=== PATIENT | male | born 1955 | race African-American/Black ===

== ENCOUNTER 2018-01-22 14:31 | Inpatient (IN) | payer MEDICAID, OTHER ==
[~2018-01-22] VITALS: Ht 180.3 cm; Wt 83.5 kg
[2018-01-22] MEDS ORDERED: SODIUM CHLORIDE FLUSH 10ML SYR IVF ONE (15:00)
[2018-01-22 15:22] LABS: BASOPHILS # (AUTO) 0.02 x10^3/uL (0-0.1); BASOPHILS % (AUTO) 0 % (0-1); EOSINOPHILS # (AUTO) 0.31 x10^3/uL (0-0.4); EOSINOPHILS % (AUTO) 3 % (1-7); LYMPHOCYTES # (AUTO) 2.15 x10^3/uL (1-3.4); LYMPHOCYTES % (AUTO) 18 % (22-44); MD NO; MEAN CORPUSCULAR HEMOGLOBIN 28.6 pg (27.5-34.5); MEAN CORPUSCULAR HGB CONC 32.6 g/dL (33.2-36.2); MEAN CORPUSCULAR VOLUME 87.8 fL (81-97); MEAN PLATELET VOLUME 10.6 fL (7.4-10.4); MONOCYTES % (AUTO) 7 % (2-9); NEUTROPHILS # (AUTO) 8.41 x10^3/uL (1.8-6.8); NEUTROPHILS % (AUTO) 72 % (42-75); PLATELET COUNT 177 x10^3/uL (130-400); RED BLOOD COUNT 4.77 x10^6/uL (4.38-5.82); RED CELL DISTRIBUTION WIDTH 16.9 % (9.4-14.8)
[2018-01-22 15:35] LABS: ALANINE AMINOTRANSFERASE 15 U/L (12-78); ALBUMIN 3.1 g/dL (3.4-5.0); ANION GAP 7 mmol/L (5-15); CALCIUM 8.7 mg/dL (8.5-10.1); CHLORIDE 108 mmol/L (98-107); CREATININE 2.13 mg/dL (0.7-1.3)
[2018-01-22 15:40] LABS: ALKALINE PHOSPHATASE 143 U/L (45-117); BILIRUBIN,TOTAL 0.3 mg/dL (0.2-1.0); TROPONIN I < 0.015 ng/mL (0.000-0.045)
[2018-01-22] MEDS ORDERED: CLON0.1T PO (16:57)
[2018-01-22] MEDS ORDERED: HYDR-3341 PO (16:57)
[2018-01-22] MEDS ORDERED: POLYETHYLENE GLYCOL 17 GM PACKET PO PRN (17:30)
[2018-01-22] MEDS ORDERED: ONDANSETRON 2MG/ML, 2ML IVPush PRN (17:30)
[2018-01-22] MEDS: HEPARIN 5,000 UNITS/ML, 1ML SQ SCH (17:30)
[2018-01-22] MEDS ORDERED: ONDANSETRON ODT 4 MG PO PRN (17:30)
[2018-01-22] MEDS ORDERED: LABETALOL 5MG/ML, 20ML IVPush PRN ×2 (17:30→19:00)
[2018-01-22 17:38] LABS: FREE T4 (FREE THYROXINE) 1.22 ng/dL (0.76-1.46)
[2018-01-22] MEDS: FUROSEMIDE 40 MG/4 ML IV SCH (18:00)
[2018-01-22] MEDS: CARVEDILOL 25 MG TABLET PO SCH (18:00)
[2018-01-22] MEDS ORDERED: PANTOPRAZOLE 40 MG IV IVPush SCH (18:00)
[2018-01-22 18:12] LABS: HEMOGLOBIN A1C 5.3 % (4.2-6.3)
[2018-01-22] MEDS ORDERED: ALBUTEROL SULFATE 2.5 MG/3 ML ONE (18:18)
[2018-01-22] MEDS ORDERED: ALBUTEROL SULFATE 2.5 MG/3 ML NPPB PRN (18:30)
[2018-01-22 18:47] LABS: CHOL/HDL RATIO 2.7; FOLATE LEVEL 13.6 ng/mL (3.1-17.5); LDL/HDL RATIO 1.2 (0.5-3.0)
[2018-01-22 18:54] VITALS: BP 189/92
[2018-01-22] MEDS: ALBUTEROL SULFATE 2.5 MG/3 ML NPPB SCH (20:00)
[2018-01-22] MEDS: THIAMINE 100MG TABLET PO SCH (20:28)
[2018-01-22] MEDS: FOLIC ACID 1 MG TABLET PO SCH (20:28)
[2018-01-22] MEDS: AMLODIPINE 5 MG TABLET PO SCH ×2 (20:29→21:00)
[2018-01-22] MEDS: OXYcodone IR 5MG TABLET PO PRN (20:29)
[2018-01-22 20:30] VITALS: BP 172/91
[2018-01-22] MEDS ORDERED: FUROSEMIDE 40 MG/4 ML IV ONE (20:30)
[2018-01-22] MEDS ORDERED: CARVEDILOL 25 MG TABLET PO SCH (20:30)
[2018-01-22] MEDS ORDERED: CARVEDILOL 25 MG TABLET PO ONE (20:30)
[2018-01-22 21:15] VITALS: BP 174/89
[2018-01-22 21:21] LABS: TROPONIN I < 0.015 ng/mL (0.000-0.045)
[2018-01-22 21:47] VITALS: BP 175/96
[2018-01-22] MEDS ORDERED: AMLO5TAB7 PO (21:57)
[2018-01-22 22:13] VITALS: BP 158/86
[2018-01-22 23:37] LABS: AMPHETAMINE SCREEN, URINE Negative (Negative); BARBITURATE SCREEN, URINE Negative (Negative); BENZODIAZEPINE SCREEN, URINE Negative (Negative); CANNABINOID SCREEN, URINE Positive (Negative); COCAINE SCREEN, URINE Negative (Negative); METHADONE SCREEN, URINE Negative (Negative); OPIATE SCREEN, URINE Negative (Negative); SODIUM,URINE RANDOM 114 mmol/L
[2018-01-22 23:52] LABS: MICROSCOPIC INDICATED
[2018-01-22 23:54] LABS: CULTURE INDICATED? NO
[2018-01-23 00:07] VITALS: BP 166/88
[2018-01-23] MEDS: HEPARIN 5,000 UNITS/ML, 1ML SQ SCH ×2 (01:05→10:22)
[2018-01-23 01:08] VITALS: BP 114/83
[2018-01-23 05:30] LABS: ALBUMIN 2.7 g/dL (3.4-5.0); ANION GAP 6 mmol/L (5-15); CALCIUM 8.6 mg/dL (8.5-10.1); CHLORIDE 106 mmol/L (98-107)
[2018-01-23 05:32] LABS: BASOPHILS # (AUTO) 0.07 x10^3/uL (0-0.1); BASOPHILS % (AUTO) 1 % (0-1); EOSINOPHILS # (AUTO) 0.11 x10^3/uL (0-0.4); EOSINOPHILS % (AUTO) 1 % (1-7); LYMPHOCYTES # (AUTO) 2.63 x10^3/uL (1-3.4); LYMPHOCYTES % (AUTO) 19 % (22-44); MD NO; MEAN CORPUSCULAR HEMOGLOBIN 29.2 pg (27.5-34.5); MEAN CORPUSCULAR VOLUME 88.5 fL (81-97); MEAN PLATELET VOLUME 11.4 fL (7.4-10.4); MONOCYTES # (AUTO) 1.29 x10^3/uL (0.2-0.8); MONOCYTES % (AUTO) 9 % (2-9); NEUTROPHILS # (AUTO) 10.12 x10^3/uL (1.8-6.8); NEUTROPHILS % (AUTO) 71 % (42-75); PLATELET COUNT 167 x10^3/uL (130-400); RED BLOOD COUNT 4.41 x10^6/uL (4.38-5.82)
[2018-01-23 05:36] LABS: ALANINE AMINOTRANSFERASE 12 U/L (12-78); ALKALINE PHOSPHATASE 121 U/L (45-117); BILIRUBIN,TOTAL 0.5 mg/dL (0.2-1.0); CREATININE 2.29 mg/dL (0.7-1.3); TOTAL PROTEIN 6.3 g/dL (6.4-8.2); TROPONIN I < 0.015 ng/mL (0.000-0.045)
[2018-01-23] MEDS: ASPIRIN 81 MG TABLET EC PO SCH (05:44)
[2018-01-23] MEDS: CARVEDILOL 25 MG TABLET PO SCH ×2 (05:44→16:50)
[2018-01-23 06:29] VITALS: BP 147/80
[2018-01-23] MEDS: ALBUTEROL SULFATE 2.5 MG/3 ML NPPB SCH ×4 (07:00→18:57)
[2018-01-23] MEDS: PANTOPRAZOLE 40 MG IV IVPush SCH ×2 (07:38→17:44)
[2018-01-23] MEDS: FUROSEMIDE 40 MG/4 ML IV SCH (07:38)
[2018-01-23] MEDS ORDERED: MAGNESIUM SULFATE PMX 2GM/50ML 50 ML IV ONE (08:00)
[2018-01-23] MEDS: DOXYCYCLINE 100MG TABLET PO SCH ×2 (08:55→21:38)
[2018-01-23] MEDS: SENNA/DOCUSATE TABLET PO SCH (08:55)
[2018-01-23] MEDS: FOLIC ACID 1 MG TABLET PO SCH (08:55)
[2018-01-23] MEDS: THIAMINE 100MG TABLET PO SCH (08:55)
[2018-01-23] MEDS: AMLODIPINE 5 MG TABLET PO SCH ×2 (08:55→21:38)
[2018-01-23] MEDS: OXYcodone IR 5MG TABLET PO PRN (08:56)
[2018-01-23] MEDS: AMPICILLIN/SULBACTAM 3 GM in SODIUM CHLORIDE 0.9% 100 ML IV SCH ×3 (10:23→21:40)
[2018-01-23] MEDS ORDERED: NITROGLYCERIN 0.4 MG BOTTLE (25 TABS) SL PRN (10:30)
[2018-01-23] MEDS ORDERED: MORPHINE SULFATE 4 MG/ML, 1ML IVPush PRN (10:30)
[2018-01-23 12:13] VITALS: BP 160/85
[2018-01-23] MEDS ORDERED: MAALOX/HYOSCYAMINE/LIDOCAINE 45 ML BTL PO ONE (13:30)
[2018-01-23] MEDS ORDERED: HEPARIN 25,000 UNITS/500ML PMX 500 ML IV PRN ×2 (16:30)
[2018-01-23] MEDS ORDERED: HEPARIN 5,000 UNITS/ML, 1ML IV ONE (16:30)
[2018-01-23] MEDS: FUROSEMIDE 20 MG/2 ML IV SCH (16:50)
[2018-01-23 20:00] VITALS: BP 150/88
[2018-01-24] MEDS: HEPARIN 5,000 UNITS/ML, 1ML IV PRN ×2 (00:52→08:22)
[2018-01-24 01:57] VITALS: BP 140/77
[2018-01-24] MEDS: AMPICILLIN/SULBACTAM 3 GM in SODIUM CHLORIDE 0.9% 100 ML IV SCH ×4 (04:15→19:32)
[2018-01-24] MEDS: PANTOPRAZOLE 40 MG IV IVPush SCH ×2 (05:13→07:30)
[2018-01-24] MEDS: ASPIRIN 81 MG TABLET EC PO SCH (05:14)
[2018-01-24 07:05] VITALS: BP 145/75
[2018-01-24 07:44] LABS: MEAN CORPUSCULAR HEMOGLOBIN 28.9 pg (27.5-34.5); MEAN CORPUSCULAR HGB CONC 32.8 g/dL (33.2-36.2); MEAN CORPUSCULAR VOLUME 88.1 fL (81-97); MEAN PLATELET VOLUME 11.3 fL (7.4-10.4); PLATELET COUNT 160 x10^3/uL (130-400); RED BLOOD COUNT 4.55 x10^6/uL (4.38-5.82); RED CELL DISTRIBUTION WIDTH 16.5 % (9.4-14.8)
[2018-01-24 07:46] LABS: ALANINE AMINOTRANSFERASE 11 U/L (12-78); ALBUMIN 2.5 g/dL (3.4-5.0); ANION GAP 4 mmol/L (5-15); CALCIUM 8.2 mg/dL (8.5-10.1); CHLORIDE 104 mmol/L (98-107); CREATININE 2.59 mg/dL (0.7-1.3)
[2018-01-24 07:48] LABS: ALKALINE PHOSPHATASE 118 U/L (45-117); BILIRUBIN,TOTAL 0.3 mg/dL (0.2-1.0); TOTAL PROTEIN 6.4 g/dL (6.4-8.2)
[2018-01-24] MEDS: ALBUTEROL SULFATE 2.5 MG/3 ML NPPB SCH ×4 (08:00→18:48)
[2018-01-24] MEDS: FUROSEMIDE 20 MG/2 ML IV SCH (08:21)
[2018-01-24] MEDS: THIAMINE 100MG TABLET PO SCH (08:22)
[2018-01-24] MEDS: FOLIC ACID 1 MG TABLET PO SCH (08:22)
[2018-01-24] MEDS: SENNA/DOCUSATE TABLET PO SCH (08:22)
[2018-01-24] MEDS: AMLODIPINE 5 MG TABLET PO SCH ×2 (08:22→20:24)
[2018-01-24] MEDS: DOXYCYCLINE 100MG TABLET PO SCH ×2 (08:22→20:25)
[2018-01-24 08:27] LABS: BASOPHILS # (AUTO) 0.02 x10^3/uL (0-0.1); BASOPHILS % (AUTO) 0 % (0-1); EOSINOPHILS # (AUTO) 0.18 x10^3/uL (0-0.4); EOSINOPHILS % (AUTO) 2 % (1-7); LYMPHOCYTES # (AUTO) 1.91 x10^3/uL (1-3.4); LYMPHOCYTES % (AUTO) 20 % (22-44); MD SCAN; MONOCYTES # (AUTO) 0.98 x10^3/uL (0.2-0.8); MONOCYTES % (AUTO) 11 % (2-9); NEUTROPHILS # (AUTO) 6.28 x10^3/uL (1.8-6.8); NEUTROPHILS % (AUTO) 67 % (42-75)
[2018-01-24] MEDS: CARVEDILOL 25 MG TABLET PO SCH (08:28)
[2018-01-24 13:23] VITALS: BP 151/69
[2018-01-24 16:19] VITALS: BP 142/60
[2018-01-24] MEDS: PANTOPROZOLE 40MG TABLET PO SCH (16:23)
[2018-01-24] MEDS: CARVEDILOL 12.5 MG TABLET PO SCH (16:23)
[2018-01-24 19:43] VITALS: BP 120/60
[2018-01-24] MEDS: HEPARIN 5,000 UNITS/ML, 1ML SQ SCH (21:59)
[2018-01-24 22:20] LABS: BASOPHILS # (AUTO) 0.04 x10^3/uL (0-0.1); BASOPHILS % (AUTO) 0 % (0-1); EOSINOPHILS % (AUTO) 2 % (1-7); LYMPHOCYTES # (AUTO) 2.41 x10^3/uL (1-3.4); LYMPHOCYTES % (AUTO) 28 % (22-44); MD NO; MEAN CORPUSCULAR HGB CONC 32.8 g/dL (33.2-36.2); MEAN CORPUSCULAR VOLUME 88.7 fL (81-97); MEAN PLATELET VOLUME 10.5 fL (7.4-10.4); MONOCYTES # (AUTO) 1.14 x10^3/uL (0.2-0.8); MONOCYTES % (AUTO) 13 % (2-9); NEUTROPHILS # (AUTO) 4.96 x10^3/uL (1.8-6.8); NEUTROPHILS % (AUTO) 57 % (42-75); PLATELET COUNT 161 x10^3/uL (130-400); RED BLOOD COUNT 4.25 x10^6/uL (4.38-5.82); RED CELL DISTRIBUTION WIDTH 16.2 % (9.4-14.8)
[2018-01-24 22:28] LABS: ALANINE AMINOTRANSFERASE 12 U/L (12-78); ALBUMIN 2.3 g/dL (3.4-5.0); ANION GAP 6 mmol/L (5-15); CALCIUM 8.4 mg/dL (8.5-10.1); CHLORIDE 102 mmol/L (98-107); CREATININE 2.86 mg/dL (0.7-1.3)
[2018-01-24 22:30] LABS: ALKALINE PHOSPHATASE 105 U/L (45-117); BILIRUBIN,TOTAL 0.2 mg/dL (0.2-1.0)
[2018-01-25] MEDS: AMPICILLIN/SULBACTAM 3 GM in SODIUM CHLORIDE 0.9% 100 ML IV SCH ×4 (01:55→20:23)
[2018-01-25 02:00] VITALS: BP 128/65
[2018-01-25] MEDS: HEPARIN 5,000 UNITS/ML, 1ML SQ SCH ×3 (05:54→22:08)
[2018-01-25] MEDS: ASPIRIN 81 MG TABLET EC PO SCH (05:54)
[2018-01-25] MEDS: PANTOPROZOLE 40MG TABLET PO SCH ×2 (05:54→16:29)
[2018-01-25] MEDS: ALBUTEROL SULFATE 2.5 MG/3 ML NPPB SCH ×5 (06:15→22:46)
[2018-01-25] MEDS ORDERED: PHARMACY MAY ADJ FOR RENAL FX MC PRN (06:30)
[2018-01-25 07:32] VITALS: BP 132/75
[2018-01-25] MEDS: CARVEDILOL 12.5 MG TABLET PO SCH ×2 (08:58→18:02)
[2018-01-25] MEDS: AMLODIPINE 5 MG TABLET PO SCH ×2 (08:58→20:22)
[2018-01-25] MEDS: FOLIC ACID 1 MG TABLET PO SCH (08:59)
[2018-01-25] MEDS: DOXYCYCLINE 100MG TABLET PO SCH ×2 (08:59→20:22)
[2018-01-25] MEDS: THIAMINE 100MG TABLET PO SCH (08:59)
[2018-01-25] MEDS: SENNA/DOCUSATE TABLET PO SCH (08:59)
[2018-01-25 14:58] VITALS: BP 150/73
[2018-01-25] MEDS: OXYcodone IR 5MG TABLET PO PRN (16:29)
[2018-01-25 18:02] VITALS: BP 163/82
[2018-01-25 20:00] VITALS: BP 144/73
[2018-01-25 23:32] VITALS: BP 151/67
[2018-01-26 02:00] VITALS: BP 154/85
[2018-01-26] MEDS: AMPICILLIN/SULBACTAM 3 GM in SODIUM CHLORIDE 0.9% 100 ML IV SCH ×3 (02:52→17:00)
[2018-01-26 05:02] LABS: BASOPHILS # (AUTO) 0.03 x10^3/uL (0-0.1); BASOPHILS % (AUTO) 1 % (0-1); EOSINOPHILS % (AUTO) 3 % (1-7); LYMPHOCYTES # (AUTO) 2.08 x10^3/uL (1-3.4); LYMPHOCYTES % (AUTO) 27 % (22-44); MD NO; MEAN CORPUSCULAR HEMOGLOBIN 29.1 pg (27.5-34.5); MEAN CORPUSCULAR HGB CONC 32.9 g/dL (33.2-36.2); MEAN CORPUSCULAR VOLUME 88.4 fL (81-97); MEAN PLATELET VOLUME 10.7 fL (7.4-10.4); MONOCYTES # (AUTO) 0.88 x10^3/uL (0.2-0.8); MONOCYTES % (AUTO) 11 % (2-9); NEUTROPHILS # (AUTO) 4.54 x10^3/uL (1.8-6.8); NEUTROPHILS % (AUTO) 59 % (42-75); PLATELET COUNT 168 x10^3/uL (130-400); RED BLOOD COUNT 4.17 x10^6/uL (4.38-5.82); RED CELL DISTRIBUTION WIDTH 16.4 % (9.4-14.8)
[2018-01-26 05:04] LABS: ALBUMIN 2.4 g/dL (3.4-5.0); CHLORIDE 106 mmol/L (98-107)
[2018-01-26 05:12] LABS: ANION GAP 6 mmol/L (5-15); CREATININE 2.98 mg/dL (0.7-1.3)
[2018-01-26] MEDS: ASPIRIN 81 MG TABLET EC PO SCH (06:28)
[2018-01-26] MEDS: PANTOPROZOLE 40MG TABLET PO SCH ×2 (06:28→17:00)
[2018-01-26] MEDS: HEPARIN 5,000 UNITS/ML, 1ML SQ SCH ×3 (06:29→20:54)
[2018-01-26 08:30] VITALS: BP 148/90
[2018-01-26] MEDS: FOLIC ACID 1 MG TABLET PO SCH (08:39)
[2018-01-26] MEDS: SENNA/DOCUSATE TABLET PO SCH (08:40)
[2018-01-26] MEDS: AMLODIPINE 5 MG TABLET PO SCH ×2 (08:40→20:54)
[2018-01-26] MEDS: DOXYCYCLINE 100MG TABLET PO SCH ×2 (08:40→20:54)
[2018-01-26] MEDS: CARVEDILOL 12.5 MG TABLET PO SCH ×2 (08:40→16:59)
[2018-01-26] MEDS: THIAMINE 100MG TABLET PO SCH (08:40)
[2018-01-26] MEDS: OXYcodone IR 5MG TABLET PO PRN ×2 (08:45→20:54)
[2018-01-26] MEDS: ALBUTEROL SULFATE 2.5 MG/3 ML NPPB SCH ×3 (11:28→20:00)
[2018-01-26] MEDS ORDERED: ERGOCALCIFEROL 50,000 UNIT CAPSULE PO SCH (12:00)
[2018-01-26 14:00] VITALS: BP 144/86
[2018-01-26 20:13] VITALS: BP 146/88
[2018-01-27] MEDS: AMPICILLIN/SULBACTAM 3 GM in SODIUM CHLORIDE 0.9% 100 ML IV SCH ×3 (00:08→16:35)
[2018-01-27 00:52] VITALS: BP 151/76
[2018-01-27 04:45] LABS: BASOPHILS # (AUTO) 0.04 x10^3/uL (0-0.1); BASOPHILS % (AUTO) 1 % (0-1); EOSINOPHILS # (AUTO) 0.23 x10^3/uL (0-0.4); EOSINOPHILS % (AUTO) 3 % (1-7); LYMPHOCYTES % (AUTO) 30 % (22-44); MD NO; MEAN CORPUSCULAR HEMOGLOBIN 28.9 pg (27.5-34.5); MEAN CORPUSCULAR HGB CONC 32.5 g/dL (33.2-36.2); MEAN CORPUSCULAR VOLUME 88.8 fL (81-97); MEAN PLATELET VOLUME 11.1 fL (7.4-10.4); MONOCYTES # (AUTO) 0.76 x10^3/uL (0.2-0.8); MONOCYTES % (AUTO) 10 % (2-9); NEUTROPHILS # (AUTO) 4.05 x10^3/uL (1.8-6.8); NEUTROPHILS % (AUTO) 56 % (42-75); PLATELET COUNT 185 x10^3/uL (130-400); RED BLOOD COUNT 4.13 x10^6/uL (4.38-5.82); RED CELL DISTRIBUTION WIDTH 16.1 % (9.4-14.8)
[2018-01-27 04:56] LABS: ALBUMIN 2.3 g/dL (3.4-5.0); ANION GAP 6 mmol/L (5-15); CALCIUM 8.6 mg/dL (8.5-10.1); CHLORIDE 108 mmol/L (98-107)
[2018-01-27] MEDS: CARVEDILOL 12.5 MG TABLET PO SCH ×2 (05:15→16:35)
[2018-01-27] MEDS: PANTOPROZOLE 40MG TABLET PO SCH ×2 (05:15→16:35)
[2018-01-27] MEDS: ASPIRIN 81 MG TABLET EC PO SCH (05:15)
[2018-01-27] MEDS: HEPARIN 5,000 UNITS/ML, 1ML SQ SCH ×3 (05:16→21:51)
[2018-01-27] MEDS: ALBUTEROL SULFATE 2.5 MG/3 ML NPPB SCH (07:20)
[2018-01-27] MEDS ORDERED: MAGNESIUM SULFATE PMX 2GM/50ML 50 ML IV ONE (07:30)
[2018-01-27 08:30] VITALS: BP 151/84
[2018-01-27] MEDS: AMLODIPINE 5 MG TABLET PO SCH ×2 (08:30→21:49)
[2018-01-27] MEDS: DOXYCYCLINE 100MG TABLET PO SCH ×2 (08:30→21:49)
[2018-01-27] MEDS: FOLIC ACID 1 MG TABLET PO SCH (08:30)
[2018-01-27] MEDS: THIAMINE 100MG TABLET PO SCH (08:30)
[2018-01-27] MEDS: SENNA/DOCUSATE TABLET PO SCH (09:00)
[2018-01-27 12:59] VITALS: BP 150/78
[2018-01-27 19:45] VITALS: BP 161/83
[2018-01-27] MEDS: VENLAFAXINE 25MG TABLET PO SCH (21:49)
[2018-01-28] MEDS: AMPICILLIN/SULBACTAM 3 GM in SODIUM CHLORIDE 0.9% 100 ML IV SCH ×3 (00:54→18:07)
[2018-01-28 02:39] VITALS: BP 157/77
[2018-01-28] MEDS: PANTOPROZOLE 40MG TABLET PO SCH ×2 (05:23→17:27)
[2018-01-28] MEDS: ASPIRIN 81 MG TABLET EC PO SCH (05:23)
[2018-01-28] MEDS: CARVEDILOL 12.5 MG TABLET PO SCH ×2 (05:23→17:27)
[2018-01-28] MEDS: HEPARIN 5,000 UNITS/ML, 1ML SQ SCH ×3 (05:24→20:37)
[2018-01-28 05:48] LABS: BASOPHILS # (AUTO) 0.05 x10^3/uL (0-0.1); BASOPHILS % (AUTO) 1 % (0-1); EOSINOPHILS # (AUTO) 0.22 x10^3/uL (0-0.4); EOSINOPHILS % (AUTO) 3 % (1-7); LYMPHOCYTES # (AUTO) 2.05 x10^3/uL (1-3.4); LYMPHOCYTES % (AUTO) 28 % (22-44); MD NO; MEAN CORPUSCULAR HEMOGLOBIN 28.5 pg (27.5-34.5); MEAN CORPUSCULAR HGB CONC 32.5 g/dL (33.2-36.2); MEAN CORPUSCULAR VOLUME 87.5 fL (81-97); MEAN PLATELET VOLUME 10.6 fL (7.4-10.4); MONOCYTES # (AUTO) 0.59 x10^3/uL (0.2-0.8); MONOCYTES % (AUTO) 8 % (2-9); NEUTROPHILS # (AUTO) 4.51 x10^3/uL (1.8-6.8); NEUTROPHILS % (AUTO) 61 % (42-75); PLATELET COUNT 199 x10^3/uL (130-400); RED BLOOD COUNT 4.28 x10^6/uL (4.38-5.82); RED CELL DISTRIBUTION WIDTH 16.1 % (9.4-14.8)
[2018-01-28 06:00] LABS: ALBUMIN 2.5 g/dL (3.4-5.0); ANION GAP 7 mmol/L (5-15); CALCIUM 8.9 mg/dL (8.5-10.1); CHLORIDE 108 mmol/L (98-107); CREATININE 2.55 mg/dL (0.7-1.3)
[2018-01-28 08:36] VITALS: BP 148/87
[2018-01-28] MEDS: SENNA/DOCUSATE TABLET PO SCH (09:00)
[2018-01-28] MEDS: THIAMINE 100MG TABLET PO SCH (09:34)
[2018-01-28] MEDS: FOLIC ACID 1 MG TABLET PO SCH (09:34)
[2018-01-28] MEDS: DOXYCYCLINE 100MG TABLET PO SCH ×2 (09:34→20:36)
[2018-01-28] MEDS: VENLAFAXINE 25MG TABLET PO SCH ×2 (09:34→20:35)
[2018-01-28] MEDS: AMLODIPINE 5 MG TABLET PO SCH ×2 (09:34→20:35)
[2018-01-28] MEDS: CALCITRIOL 0.25 MCG CAPSULE PO SCH (12:18)
[2018-01-28 13:26] VITALS: BP 158/82
[2018-01-28 20:39] VITALS: BP 151/82
[2018-01-29] MEDS: AMPICILLIN/SULBACTAM 3 GM in SODIUM CHLORIDE 0.9% 100 ML IV SCH ×3 (01:51→17:15)
[2018-01-29 02:21] VITALS: BP 145/75
[2018-01-29 06:13] VITALS: BP 153/80
[2018-01-29 06:13] LABS: ALANINE AMINOTRANSFERASE 17 U/L (12-78); ALBUMIN 2.3 g/dL (3.4-5.0); ANION GAP 9 mmol/L (5-15); CALCIUM 8.9 mg/dL (8.5-10.1); CHLORIDE 108 mmol/L (98-107)
[2018-01-29 06:16] LABS: % IRON SATURATION 39 % (20-55); ALKALINE PHOSPHATASE 97 U/L (45-117); BILIRUBIN,TOTAL 0.3 mg/dL (0.2-1.0); CREATININE 2.54 mg/dL (0.7-1.3); IRON LEVEL 75 mcg/dL (65-175); TOTAL IRON BINDING CAPACITY 194 mcg/dL (250-450); TOTAL PROTEIN 6.2 g/dL (6.4-8.2)
[2018-01-29] MEDS: CARVEDILOL 12.5 MG TABLET PO SCH ×2 (06:16→17:23)
[2018-01-29] MEDS: HEPARIN 5,000 UNITS/ML, 1ML SQ SCH ×3 (06:16→21:59)
[2018-01-29] MEDS: ASPIRIN 81 MG TABLET EC PO SCH (06:16)
[2018-01-29] MEDS: PANTOPROZOLE 40MG TABLET PO SCH ×2 (06:16→17:15)
[2018-01-29 06:26] LABS: BASOPHILS # (AUTO) 0.04 x10^3/uL (0-0.1); BASOPHILS % (AUTO) 1 % (0-1); EOSINOPHILS # (AUTO) 0.27 x10^3/uL (0-0.4); EOSINOPHILS % (AUTO) 3 % (1-7); LYMPHOCYTES # (AUTO) 2.13 x10^3/uL (1-3.4); LYMPHOCYTES % (AUTO) 26 % (22-44); MD SCAN; MONOCYTES # (AUTO) 0.64 x10^3/uL (0.2-0.8); MONOCYTES % (AUTO) 8 % (2-9); NEUTROPHILS # (AUTO) 5.28 x10^3/uL (1.8-6.8); NEUTROPHILS % (AUTO) 63 % (42-75)
[2018-01-29 06:27] LABS: MEAN CORPUSCULAR HEMOGLOBIN 29.3 pg (27.5-34.5); MEAN CORPUSCULAR HGB CONC 33.4 g/dL (33.2-36.2); MEAN CORPUSCULAR VOLUME 87.9 fL (81-97); MEAN PLATELET VOLUME 10.9 fL (7.4-10.4); PLATELET COUNT 200 x10^3/uL (130-400); RED BLOOD COUNT 4.32 x10^6/uL (4.38-5.82)
[2018-01-29 07:15] VITALS: BP 146/77
[2018-01-29] MEDS: DOXYCYCLINE 100MG TABLET PO SCH ×2 (09:00→21:59)
[2018-01-29] MEDS: SENNA/DOCUSATE TABLET PO SCH (09:00)
[2018-01-29] MEDS: CALCITRIOL 0.25 MCG CAPSULE PO SCH (10:08)
[2018-01-29] MEDS: THIAMINE 100MG TABLET PO SCH (10:08)
[2018-01-29] MEDS: FOLIC ACID 1 MG TABLET PO SCH (10:09)
[2018-01-29] MEDS: AMLODIPINE 5 MG TABLET PO SCH ×2 (10:09→21:58)
[2018-01-29] MEDS: VENLAFAXINE 25MG TABLET PO SCH ×2 (10:15→21:58)
[2018-01-29] MEDS: OXYcodone IR 5MG TABLET PO PRN ×2 (10:15→22:13)
[2018-01-29] MEDS ORDERED: FUROSEMIDE 10 MG/ML ORAL SOL PO SCH (10:30)
[2018-01-29] MEDS: FUROSEMIDE 40 MG TABLET PO SCH (10:56)
[2018-01-29 13:35] VITALS: BP 160/80
[2018-01-29 17:16] VITALS: BP 161/84
[2018-01-29 18:53] VITALS: BP 150/78
[2018-01-30] VITALS (7 sets, daily range): BP systolic 147–166; BP diastolic 72–83
[2018-01-30] MEDS: AMPICILLIN/SULBACTAM 3 GM in SODIUM CHLORIDE 0.9% 100 ML IV SCH (01:04)
[2018-01-30] MEDS: OXYcodone IR 5MG TABLET PO PRN (04:40)
[2018-01-30] MEDS: PANTOPROZOLE 40MG TABLET PO SCH ×2 (05:24→17:33)
[2018-01-30] MEDS: ASPIRIN 81 MG TABLET EC PO SCH (05:24)
[2018-01-30] MEDS: HEPARIN 5,000 UNITS/ML, 1ML SQ SCH ×3 (05:25→21:48)
[2018-01-30] MEDS: CARVEDILOL 12.5 MG TABLET PO SCH ×2 (05:28→17:34)
[2018-01-30 06:16] LABS: ALBUMIN 2.6 g/dL (3.4-5.0); ANION GAP 8 mmol/L (5-15); CALCIUM 9.2 mg/dL (8.5-10.1); CHLORIDE 108 mmol/L (98-107)
[2018-01-30 06:19] LABS: MEAN CORPUSCULAR HEMOGLOBIN 28.9 pg (27.5-34.5); MEAN CORPUSCULAR HGB CONC 33.2 g/dL (33.2-36.2); MEAN CORPUSCULAR VOLUME 87.1 fL (81-97); MEAN PLATELET VOLUME 11.1 fL (7.4-10.4); PLATELET COUNT 218 x10^3/uL (130-400); RED BLOOD COUNT 4.28 x10^6/uL (4.38-5.82); RED CELL DISTRIBUTION WIDTH 15.8 % (9.4-14.8)
[2018-01-30 06:21] LABS: ALANINE AMINOTRANSFERASE 21 U/L (12-78); ALKALINE PHOSPHATASE 99 U/L (45-117); BILIRUBIN,TOTAL 0.2 mg/dL (0.2-1.0); CREATININE 2.77 mg/dL (0.7-1.3); TOTAL PROTEIN 6.5 g/dL (6.4-8.2)
[2018-01-30 06:47] LABS: BASOPHILS # (AUTO) 0.02 x10^3/uL (0-0.1); BASOPHILS % (AUTO) 0 % (0-1); EOSINOPHILS # (AUTO) 0.32 x10^3/uL (0-0.4); EOSINOPHILS % (AUTO) 4 % (1-7); LYMPHOCYTES % (AUTO) 28 % (22-44); MD SCAN; MONOCYTES # (AUTO) 0.67 x10^3/uL (0.2-0.8); MONOCYTES % (AUTO) 8 % (2-9); NEUTROPHILS # (AUTO) 4.82 x10^3/uL (1.8-6.8); NEUTROPHILS % (AUTO) 59 % (42-75)
[2018-01-30] MEDS: SENNA/DOCUSATE TABLET PO SCH (09:00)
[2018-01-30] MEDS ORDERED: PHARMACY MAY ADJ FOR RENAL FX MC PRN (09:30)
[2018-01-30] MEDS: FOLIC ACID 1 MG TABLET PO SCH (09:56)
[2018-01-30] MEDS: CALCITRIOL 0.25 MCG CAPSULE PO SCH (09:56)
[2018-01-30] MEDS: THIAMINE 100MG TABLET PO SCH (09:57)
[2018-01-30] MEDS: FUROSEMIDE 40 MG TABLET PO SCH (09:57)
[2018-01-30] MEDS: AMLODIPINE 5 MG TABLET PO SCH ×2 (09:57→21:48)
[2018-01-30] MEDS: VENLAFAXINE 25MG TABLET PO SCH ×2 (09:57→21:47)
[2018-01-30] MEDS: DOXYCYCLINE 100MG TABLET PO SCH ×2 (09:57→21:48)
[2018-01-30] MEDS: AMOXICILLIN/CLAV 875-125MG TABLET PO SCH ×2 (10:05→21:00)
[2018-01-30] MEDS: VALSARTAN 80 MG TABLET PO SCH ×2 (11:23→21:47)
[2018-01-31 02:55] VITALS: BP 159/73
[2018-01-31 05:12] VITALS: BP 158/81
[2018-01-31] MEDS: PANTOPROZOLE 40MG TABLET PO SCH (05:12)
[2018-01-31] MEDS: ASPIRIN 81 MG TABLET EC PO SCH (05:12)
[2018-01-31] MEDS: CARVEDILOL 12.5 MG TABLET PO SCH (05:13)
[2018-01-31] MEDS: HEPARIN 5,000 UNITS/ML, 1ML SQ SCH (05:14)
[2018-01-31 05:36] LABS: BASOPHILS # (AUTO) 0.03 x10^3/uL (0-0.1); BASOPHILS % (AUTO) 0 % (0-1); EOSINOPHILS # (AUTO) 0.34 x10^3/uL (0-0.4); EOSINOPHILS % (AUTO) 4 % (1-7); LYMPHOCYTES # (AUTO) 2.08 x10^3/uL (1-3.4); LYMPHOCYTES % (AUTO) 25 % (22-44); MD NO; MEAN CORPUSCULAR HEMOGLOBIN 28.9 pg (27.5-34.5); MEAN CORPUSCULAR HGB CONC 32.6 g/dL (33.2-36.2); MEAN CORPUSCULAR VOLUME 88.7 fL (81-97); MEAN PLATELET VOLUME 10.6 fL (7.4-10.4); MONOCYTES # (AUTO) 0.73 x10^3/uL (0.2-0.8); MONOCYTES % (AUTO) 9 % (2-9); NEUTROPHILS # (AUTO) 5.11 x10^3/uL (1.8-6.8); NEUTROPHILS % (AUTO) 62 % (42-75); PLATELET COUNT 230 x10^3/uL (130-400); RED BLOOD COUNT 4.38 x10^6/uL (4.38-5.82)
[2018-01-31 05:48] LABS: CHLORIDE 106 mmol/L (98-107)
[2018-01-31 05:49] LABS: ALBUMIN 2.6 g/dL (3.4-5.0); ANION GAP 5 mmol/L (5-15); CALCIUM 8.9 mg/dL (8.5-10.1)
[2018-01-31 05:50] LABS: CREATININE 2.95 mg/dL (0.7-1.3)
[2018-01-31 07:14] VITALS: BP 148/74
[2018-01-31] MEDS: AMOXICILLIN/CLAV 875-125MG TABLET PO SCH (08:45)
[2018-01-31] MEDS: THIAMINE 100MG TABLET PO SCH (08:45)
[2018-01-31] MEDS: DOXYCYCLINE 100MG TABLET PO SCH (08:46)
[2018-01-31] MEDS: AMLODIPINE 5 MG TABLET PO SCH (08:46)
[2018-01-31] MEDS: SENNA/DOCUSATE TABLET PO SCH (08:46)
[2018-01-31] MEDS: VENLAFAXINE 25MG TABLET PO SCH (08:46)
[2018-01-31] MEDS: FUROSEMIDE 40 MG TABLET PO SCH (08:46)
[2018-01-31] MEDS: VALSARTAN 80 MG TABLET PO SCH (08:46)
[2018-01-31] MEDS: CALCITRIOL 0.25 MCG CAPSULE PO SCH (08:46)
[2018-01-31] MEDS: FOLIC ACID 1 MG TABLET PO SCH (08:46)
[2018-01-31] MEDS ORDERED: CALC0.25 PO (09:37)
[2018-01-31] MEDS ORDERED: AMLO5TAB7 PO (09:37)
[2018-01-31] MEDS ORDERED: DOXY100T PO (09:37)
[2018-01-31] MEDS ORDERED: ERGO500017 PO (09:37)
[2018-01-31] MEDS ORDERED: THIA100T67 PO (09:37)
[2018-01-31] MEDS ORDERED: AMOX1TAB12 PO (09:37)
[2018-01-31] MEDS ORDERED: PANT40TA5 PO (09:37)
[2018-01-31] MEDS ORDERED: FURO40TA6 PO (09:37)
[2018-01-31] MEDS ORDERED: VALS80TA30 PO (09:37)
[2018-01-31] MEDS ORDERED: FOLI-17 PO (09:37)
[2018-01-31] MEDS ORDERED: VENL25TA PO (09:37)
[2018-01-31] MEDS ORDERED: HYDR-3343 PO (09:37)
[2018-01-31] MEDS ORDERED: ASPI-621 PO (09:37)
[2018-01-31] MEDS ORDERED: CARV12.543 PO (09:37)
== END 2018-01-31 12:02 | disposition home or self-care (01) | DRG 682 ==
LOC: ED 14:57 → EDIP 17:05 → 5SO 18:37 → 4WST 01-27 12:21 → DCLOUNGE 01-31 11:57
PROVIDERS: ADMIT Internal Medicine; ATTEND Internal Medicine
DX: N17.9 Acute kidney failure, unspecified (principal); I50.33 Acute on chronic diastolic (congestive) heart failure; J18.9 Pneumonia, unspecified organism; E46 Unspecified protein-calorie malnutrition; F33.1 Major depressive disorder, recurrent, moderate; G93.40 Encephalopathy, unspecified; I13.0 Hypertensive heart and chronic kidney disease with heart failure and stage 1 through stage 4 chronic kidney disease, or unspecified chronic kidney disease; I16.1 Hypertensive emergency; Z68.25 Body mass index [BMI] 25.0-25.9, adult; E78.5 Hyperlipidemia, unspecified; F12.90 Cannabis use, unspecified, uncomplicated; F17.210 Nicotine dependence, cigarettes, uncomplicated; F29 Unspecified psychosis not due to a substance or known physiological condition; F43.10 Post-traumatic stress disorder, unspecified; I25.10 Atherosclerotic heart disease of native coronary artery without angina pectoris; J45.909 Unspecified asthma, uncomplicated; K44.9 Diaphragmatic hernia without obstruction or gangrene; M19.019 Primary osteoarthritis, unspecified shoulder; N18.3 Chronic kidney disease, stage 3 (moderate); N25.0 Renal osteodystrophy; Z59.0 Homelessness; Z82.49 Family history of ischemic heart disease and other diseases of the circulatory system; Z86.79 Personal history of other diseases of the circulatory system; Z91.14 Patient's other noncompliance with medication regimen; Z23 Encounter for immunization
CPT/HCPCS: 36415; 82570; 84145; 84155; 84156; 99285; J7613; 70450; 71045; 71250; 74176; 76700; 78582; 80048; 80053; 80061; 80069; 80307; 81001; 82040; 82043; 82140; 82306; 82607; 82728; 82746; 82962; 83036; 83540; 83550; 83605; 83735; 83880; 83970; 84100; 84165; 84166; 84300; 84439; 84443; 84484; 84550; 85025; 85379; 85520; 87040; 87070; 87205; 90656; 93005; 93306; 93970; 94640; G0378; J0295; J1644; J1940; Q0162; A9540; A9558; C9113; C9898; J3475

== ENCOUNTER 2018-04-02 20:29 | Inpatient (IN) | payer MEDICAID ==
[~2018-04-02] VITALS: Ht 177.8 cm; Wt 90.1 kg
[~2018-04-02 20:29] MED LIST: AMLO-150 PO; AMOX1TAB12 PO; ASPI81TA45 PO; CALC0.25 PO; CARV12.543 PO; CLON0.1T22 PO; DOXY100T PO; ERGO500017 PO; FOLI-17 PO; FURO40TA6 PO; HYDR-3341 PO; HYDR-3343 PO; PANT40TA5 PO; THIA100T67 PO; VALS80TA30 PO; VENL25TA PO
--- NOTE | 2018-04-02 20:41 | NUR ---
pt bib remsa with c/o chest pain and cough x 2 days, pt in nad at this time vss, remsa placed 18 g piv to right ac, and breathing treatment was given in route, pt placed on all monitors and ekg done ,
[2018-04-02] MEDS ORDERED: ALBUTEROL SULFATE 2.5 MG/3 ML NPPB ONE (21:00)
[2018-04-02] MEDS ORDERED: ALBUTEROL SULFATE 2.5 MG/3 ML ONE (21:03)
--- NOTE | 2018-04-02 21:16 | NUR ---
Pt resting on gurney, remains on all monitors, VSS. Labs drawn, RT treatment finished. Flu swab collected and sent to lab.
--- NOTE | 2018-04-02 21:17 | NUR ---
Lab at bedside.
[2018-04-02 21:22] LABS: BASOPHILS # (AUTO) 0.06 x10^3/uL (0-0.1); BASOPHILS % (AUTO) 1 % (0-1); EOSINOPHILS # (AUTO) 0.38 x10^3/uL (0-0.4); EOSINOPHILS % (AUTO) 3 % (1-7); LYMPHOCYTES # (AUTO) 2.11 x10^3/uL (1-3.4); LYMPHOCYTES % (AUTO) 19 % (22-44); MD NO; MEAN CORPUSCULAR HEMOGLOBIN 28.5 pg (27.5-34.5); MEAN CORPUSCULAR VOLUME 86.5 fL (81-97); MEAN PLATELET VOLUME 8.7 fL (7.4-10.4); MONOCYTES # (AUTO) 0.59 x10^3/uL (0.2-0.8); MONOCYTES % (AUTO) 5 % (2-9); NEUTROPHILS % (AUTO) 72 % (42-75); PLATELET COUNT 215 x10^3/uL (130-400); RED BLOOD COUNT 4.15 x10^6/uL (4.38-5.82); RED CELL DISTRIBUTION WIDTH 17.6 % (9.4-14.8)
[2018-04-02 21:33] LABS: ALANINE AMINOTRANSFERASE 16 U/L (12-78); ALBUMIN 2.7 g/dL (3.4-5.0); ANION GAP 7 mmol/L (5-15); CALCIUM 8.5 mg/dL (8.5-10.1); CHLORIDE 108 mmol/L (98-107); CREATININE 2.58 mg/dL (0.7-1.3)
[2018-04-02 21:38] LABS: ALKALINE PHOSPHATASE 117 U/L (45-117); BILIRUBIN,TOTAL 0.2 mg/dL (0.2-1.0); TOTAL PROTEIN 6.3 g/dL (6.4-8.2); TROPONIN I < 0.015 ng/mL (0.000-0.045)
--- NOTE | 2018-04-02 21:45 | NUR ---
Pt placed on 2L NC for O2 sats of 87%, pt with his head under the blankets as he states that's the most comfortable, lights turned off for pt comfort, but pt remains with head under blankets. Pt noted to be sleeping upon entering the room, wakes up to light touch.
[2018-04-02 21:47] LABS: RAPID INFLUENZA A Negative (Negative); RAPID INFLUENZA B Negative (Negative)
[2018-04-02] MEDS ORDERED: CEFTRIAXONE PMX 1GM/50ML 50 ML ONE (22:13)
--- NOTE | 2018-04-02 22:15 | NUR ---
Dr. Ly at bedside to update pt on ED findings and POC.
--- NOTE | 2018-04-02 22:21 | NUR ---
Lab at bedside.
[2018-04-02] MEDS ORDERED: AZITHROMYCIN 500 MG in SODIUM CHLORIDE 0.9% 250 ML IV ONE (22:30)
[2018-04-02] MEDS ORDERED: CEFTRIAXONE PMX 1GM/50ML 50 ML IVPB ONE (22:30)
--- NOTE | 2018-04-02 22:33 | NUR ---
IV ABX started, after blood cultures x2 drawn by lab.
[2018-04-02] MEDS ORDERED: POLYETHYLENE GLYCOL 17 GM PACKET PO PRN (23:30)
[2018-04-02] MEDS ORDERED: ERGOCALCIFEROL 50,000 UNIT CAPSULE PO SCH (23:30)
[2018-04-02] MEDS ORDERED: BISACODYL 10 MG SUPP PR PRN (23:30)
[2018-04-02] MEDS ORDERED: ONDANSETRON 2MG/ML, 2ML IVPush PRN (23:30)
[2018-04-02] MEDS ORDERED: ONDANSETRON ODT 4 MG PO PRN (23:30)
[2018-04-02] MEDS ORDERED: GABAPENTIN 300 MG CAPSULE PO PRN (23:30)
[2018-04-02] MEDS ORDERED: PROMETHAZINE 25 MG/ML, 1ML IM PRN (23:30)
[2018-04-02] MEDS ORDERED: CEFTRIAXONE PMX 1GM/50ML 50 ML IV ONE (23:30)
[2018-04-02] MEDS ORDERED: LABETALOL 5MG/ML, 20ML IVPush PRN (23:30)
[2018-04-02] MEDS ORDERED: hydrALAzine 20 MG/ML, 1ML IVPush PRN (23:30)
--- NOTE | 2018-04-02 23:30 | NUR ---
Telephone SBAR report given to Martita STRONG. Pt made aware of new room assignment.
[2018-04-02 23:58] LABS: FREE T4 (FREE THYROXINE) 1.19 ng/dL (0.76-1.46); THYROID STIMULATING HORMONE 1.58 mIU/L (0.358-3.740)
[2018-04-03 00:12] LABS: HEMOGLOBIN A1C 5.5 % (4.2-6.3)
[2018-04-03 00:51] VITALS: BP 136/66
[2018-04-03] MEDS: HEPARIN 5,000 UNITS/ML, 1ML SQ SCH ×3 (01:24→16:39)
[2018-04-03] MEDS: VENLAFAXINE 25MG TABLET PO SCH ×3 (01:24→20:54)
[2018-04-03] MEDS: FUROSEMIDE 20 MG/2 ML IV SCH ×3 (01:24→16:40)
[2018-04-03] MEDS: NICOTINE 7 MG/24 HR PATCH.TD24 TD SCH (01:24)
[2018-04-03] MEDS: AMLODIPINE 5 MG TABLET PO SCH ×3 (01:25→20:54)
[2018-04-03 02:25] LABS: BASOPHILS # (AUTO) 0.03 x10^3/uL (0-0.1); BASOPHILS % (AUTO) 0 % (0-1); EOSINOPHILS # (AUTO) 0.32 x10^3/uL (0-0.4); EOSINOPHILS % (AUTO) 4 % (1-7); LYMPHOCYTES % (AUTO) 17 % (22-44); MD NO; MEAN CORPUSCULAR HEMOGLOBIN 28.5 pg (27.5-34.5); MEAN CORPUSCULAR HGB CONC 33.1 g/dL (33.2-36.2); MEAN CORPUSCULAR VOLUME 86.1 fL (81-97); MEAN PLATELET VOLUME 8.6 fL (7.4-10.4); MONOCYTES # (AUTO) 0.51 x10^3/uL (0.2-0.8); MONOCYTES % (AUTO) 6 % (2-9); NEUTROPHILS # (AUTO) 6.79 x10^3/uL (1.8-6.8); NEUTROPHILS % (AUTO) 73 % (42-75); PLATELET COUNT 200 x10^3/uL (130-400); RED BLOOD COUNT 4.02 x10^6/uL (4.38-5.82); RED CELL DISTRIBUTION WIDTH 17.3 % (9.4-14.8)
[2018-04-03] MEDS: AZITHROMYCIN 500 MG in SODIUM CHLORIDE 0.9% 250 ML IV SCH (02:35)
[2018-04-03 02:36] LABS: ALANINE AMINOTRANSFERASE 15 U/L (12-78); ALBUMIN 2.6 g/dL (3.4-5.0); ANION GAP 7 mmol/L (5-15); CALCIUM 8.5 mg/dL (8.5-10.1); CHLORIDE 108 mmol/L (98-107)
[2018-04-03 02:39] LABS: ALKALINE PHOSPHATASE 117 U/L (45-117); BILIRUBIN,TOTAL 0.2 mg/dL (0.2-1.0); CHOL/HDL RATIO 2.1; CHOLESTEROL, TOTAL 164 mg/dL (140-239); CREATININE 2.61 mg/dL (0.7-1.3); HDL CHOL % 48 % (26-37); HDL CHOLESTEROL (DIRECT) 78 mg/dL (40-60); LDL CHOLESTEROL,CALCULATED 70 mg/dL (54-169); LDL/HDL RATIO 0.9 (0.5-3.0); TOTAL PROTEIN 6.2 g/dL (6.4-8.2); TRIGLYCERIDES 81 mg/dL (50-200); VLDL CHOLESTEROL 16 mg/dL (0-25)
[2018-04-03 05:45] VITALS: BP 161/84
[2018-04-03] MEDS: DOCUSATE 100 MG CAPSULE PO PRN (05:48)
[2018-04-03] MEDS: CARVEDILOL 12.5 MG TABLET PO SCH ×2 (05:48→16:39)
[2018-04-03] MEDS: ASPIRIN 81 MG TABLET EC PO SCH (05:49)
[2018-04-03] MEDS: ALBUTEROL SULFATE 2.5 MG/3 ML NPPB SCH ×4 (06:19→18:35)
[2018-04-03 07:30] VITALS: BP 135/79
[2018-04-03] MEDS: PANTOPROZOLE 40MG TABLET PO SCH (08:39)
[2018-04-03] MEDS: CALCITRIOL 0.25 MCG CAPSULE PO SCH (08:39)
[2018-04-03] MEDS: GUAIFENESIN/DM 200-20MG, 10ML UDC PO PRN (12:23)
[2018-04-03 12:54] VITALS: BP 155/75
[2018-04-03 16:37] VITALS: BP 157/77
[2018-04-03] MEDS: ACETAMINOPHEN 325 MG TABLET PO PRN (16:45)
[2018-04-03 19:02] VITALS: BP 151/74
[2018-04-04] MEDS: ACETAMINOPHEN 325 MG TABLET PO PRN ×2 (00:21→22:35)
[2018-04-04 01:09] VITALS: BP 159/81
[2018-04-04] MEDS: NICOTINE 7 MG/24 HR PATCH.TD24 TD SCH (01:14)
[2018-04-04] MEDS: HEPARIN 5,000 UNITS/ML, 1ML SQ SCH ×3 (01:14→17:05)
[2018-04-04] MEDS: CEFTRIAXONE PMX 2GM/50ML 50 ML IV SCH (01:17)
[2018-04-04 05:05] LABS: BASOPHILS # (AUTO) 0.03 x10^3/uL (0-0.1); BASOPHILS % (AUTO) 0 % (0-1); EOSINOPHILS # (AUTO) 0.47 x10^3/uL (0-0.4); EOSINOPHILS % (AUTO) 5 % (1-7); LYMPHOCYTES # (AUTO) 2.19 x10^3/uL (1-3.4); LYMPHOCYTES % (AUTO) 22 % (22-44); MD NO; MEAN CORPUSCULAR HEMOGLOBIN 28.4 pg (27.5-34.5); MEAN CORPUSCULAR HGB CONC 32.8 g/dL (33.2-36.2); MEAN CORPUSCULAR VOLUME 86.6 fL (81-97); MEAN PLATELET VOLUME 9.6 fL (7.4-10.4); MONOCYTES # (AUTO) 0.63 x10^3/uL (0.2-0.8); MONOCYTES % (AUTO) 6 % (2-9); NEUTROPHILS # (AUTO) 6.51 x10^3/uL (1.8-6.8); NEUTROPHILS % (AUTO) 66 % (42-75); PLATELET COUNT 215 x10^3/uL (130-400); RED BLOOD COUNT 4.15 x10^6/uL (4.38-5.82); RED CELL DISTRIBUTION WIDTH 17.4 % (9.4-14.8)
[2018-04-04 05:17] LABS: ANION GAP 6 mmol/L (5-15); CALCIUM 8.6 mg/dL (8.5-10.1); CHLORIDE 105 mmol/L (98-107); CREATININE 2.82 mg/dL (0.7-1.3)
[2018-04-04] MEDS: CARVEDILOL 12.5 MG TABLET PO SCH ×2 (06:02→17:05)
[2018-04-04] MEDS: ASPIRIN 81 MG TABLET EC PO SCH (06:02)
[2018-04-04 06:45] VITALS: BP 155/76
[2018-04-04] MEDS: CALCITRIOL 0.25 MCG CAPSULE PO SCH (08:14)
[2018-04-04] MEDS: AMLODIPINE 5 MG TABLET PO SCH ×2 (08:14→21:12)
[2018-04-04] MEDS: PANTOPROZOLE 40MG TABLET PO SCH (08:14)
[2018-04-04] MEDS: VENLAFAXINE 25MG TABLET PO SCH ×2 (08:14→21:12)
[2018-04-04] MEDS: FUROSEMIDE 20 MG/2 ML IV SCH ×2 (08:15→17:04)
[2018-04-04] MEDS: GUAIFENESIN/DM 200-20MG, 10ML UDC PO PRN (08:24)
[2018-04-04] MEDS: ALBUTEROL SULFATE 2.5 MG/3 ML NPPB SCH ×3 (10:05→20:00)
[2018-04-04 12:37] VITALS: BP 161/76
[2018-04-04 19:22] VITALS: BP 150/78
[2018-04-04] MEDS: AZITHROMYCIN 500 MG in SODIUM CHLORIDE 0.9% 250 ML IV SCH (21:12)
[2018-04-05] MEDS: CEFTRIAXONE PMX 2GM/50ML 50 ML IV SCH (01:02)
[2018-04-05] MEDS: NICOTINE 7 MG/24 HR PATCH.TD24 TD SCH (01:02)
[2018-04-05] MEDS: HEPARIN 5,000 UNITS/ML, 1ML SQ SCH ×3 (01:03→17:21)
[2018-04-05] MEDS: TEMAZEPAM 15 MG CAPSULE PO PRN (01:03)
[2018-04-05 01:22] VITALS: BP 156/75
[2018-04-05] MEDS: GUAIFENESIN/DM 200-20MG, 10ML UDC PO PRN (03:54)
[2018-04-05] MEDS: ALBUTEROL SULFATE 2.5 MG/3 ML NPPB SCH ×2 (04:05→07:44)
[2018-04-05 05:42] VITALS: BP 162/76
[2018-04-05 05:53] LABS: BASOPHILS # (AUTO) 0.05 x10^3/uL (0-0.1); BASOPHILS % (AUTO) 1 % (0-1); EOSINOPHILS # (AUTO) 0.56 x10^3/uL (0-0.4); EOSINOPHILS % (AUTO) 6 % (1-7); LYMPHOCYTES # (AUTO) 1.98 x10^3/uL (1-3.4); LYMPHOCYTES % (AUTO) 21 % (22-44); MD NO; MEAN CORPUSCULAR HEMOGLOBIN 28.4 pg (27.5-34.5); MEAN CORPUSCULAR VOLUME 86.1 fL (81-97); MEAN PLATELET VOLUME 10.1 fL (7.4-10.4); MONOCYTES # (AUTO) 0.74 x10^3/uL (0.2-0.8); MONOCYTES % (AUTO) 8 % (2-9); NEUTROPHILS # (AUTO) 6.26 x10^3/uL (1.8-6.8); NEUTROPHILS % (AUTO) 65 % (42-75); PLATELET COUNT 200 x10^3/uL (130-400); RED BLOOD COUNT 4.12 x10^6/uL (4.38-5.82); RED CELL DISTRIBUTION WIDTH 17.5 % (9.4-14.8)
[2018-04-05] MEDS: ASPIRIN 81 MG TABLET EC PO SCH (05:54)
[2018-04-05] MEDS: CARVEDILOL 12.5 MG TABLET PO SCH ×2 (06:00→18:15)
[2018-04-05 06:05] LABS: CHLORIDE 104 mmol/L (98-107)
[2018-04-05 06:11] LABS: ANION GAP 7 mmol/L (5-15); CALCIUM 9.1 mg/dL (8.5-10.1); CREATININE 2.83 mg/dL (0.7-1.3)
[2018-04-05 07:19] VITALS: BP 156/85
[2018-04-05] MEDS: PANTOPROZOLE 40MG TABLET PO SCH (08:18)
[2018-04-05] MEDS: AMLODIPINE 5 MG TABLET PO SCH ×2 (08:18→21:19)
[2018-04-05] MEDS: VENLAFAXINE 25MG TABLET PO SCH ×2 (08:18→21:19)
[2018-04-05] MEDS: CALCITRIOL 0.25 MCG CAPSULE PO SCH (08:18)
[2018-04-05] MEDS: FUROSEMIDE 20 MG/2 ML IV SCH (08:18)
[2018-04-05] MEDS ORDERED: ALBUTEROL SULFATE 2.5 MG/3 ML NPPB PRN (11:00)
[2018-04-05 13:43] VITALS: BP 152/76
[2018-04-05] MEDS: FUROSEMIDE 20 MG TABLET PO SCH (17:21)
[2018-04-05] MEDS: BENZONATATE 100 MG CAPSULE PO SCH ×2 (17:21→21:19)
[2018-04-05 21:12] VITALS: BP 146/66
[2018-04-05] MEDS: AZITHROMYCIN 500 MG in SODIUM CHLORIDE 0.9% 250 ML IV SCH (21:19)
[2018-04-05] MEDS: GUAIFENESIN ER 600 MG TABLET PO SCH (21:20)
[2018-04-06] MEDS: CEFTRIAXONE PMX 2GM/50ML 50 ML IV SCH (01:09)
[2018-04-06] MEDS: HEPARIN 5,000 UNITS/ML, 1ML SQ SCH ×3 (01:09→17:06)
[2018-04-06] MEDS: NICOTINE 7 MG/24 HR PATCH.TD24 TD SCH (01:10)
[2018-04-06 01:13] VITALS: BP 157/69
[2018-04-06] MEDS: TEMAZEPAM 15 MG CAPSULE PO PRN (01:20)
[2018-04-06 05:48] VITALS: BP 149/85
[2018-04-06] MEDS: ASPIRIN 81 MG TABLET EC PO SCH (05:49)
[2018-04-06] MEDS: CARVEDILOL 12.5 MG TABLET PO SCH ×2 (05:50→17:09)
[2018-04-06 06:15] LABS: ANION GAP 7 mmol/L (5-15); CALCIUM 8.7 mg/dL (8.5-10.1); CHLORIDE 106 mmol/L (98-107)
[2018-04-06 06:16] LABS: CREATININE 2.82 mg/dL (0.7-1.3)
[2018-04-06 07:48] VITALS: BP 158/77
[2018-04-06] MEDS: VENLAFAXINE 25MG TABLET PO SCH ×2 (08:11→20:54)
[2018-04-06] MEDS: CALCITRIOL 0.25 MCG CAPSULE PO SCH (08:11)
[2018-04-06] MEDS: GUAIFENESIN ER 600 MG TABLET PO SCH ×2 (08:11→20:54)
[2018-04-06] MEDS: AMLODIPINE 5 MG TABLET PO SCH ×2 (08:11→20:54)
[2018-04-06] MEDS: BENZONATATE 100 MG CAPSULE PO SCH ×3 (08:12→20:54)
[2018-04-06] MEDS: FUROSEMIDE 20 MG TABLET PO SCH ×2 (08:12→17:07)
[2018-04-06] MEDS: PANTOPROZOLE 40MG TABLET PO SCH (08:13)
[2018-04-06] MEDS: VALSARTAN 80 MG TABLET PO SCH ×2 (10:59→21:00)
[2018-04-06] MEDS: TAMSULOSIN 0.4 MG CAP.ER.24H PO SCH (11:00)
[2018-04-06 14:21] VITALS: BP 148/72
[2018-04-06 19:40] VITALS: BP 145/70
[2018-04-06 20:49] VITALS: BP 146/70
[2018-04-06] MEDS: AZITHROMYCIN 500 MG in SODIUM CHLORIDE 0.9% 250 ML IV SCH (21:51)
[2018-04-07] VITALS (9 sets, daily range): BP systolic 130–157; BP diastolic 64–79
[2018-04-07] MEDS: NICOTINE 7 MG/24 HR PATCH.TD24 TD SCH (01:15)
[2018-04-07] MEDS: HEPARIN 5,000 UNITS/ML, 1ML SQ SCH ×3 (01:16→17:16)
[2018-04-07] MEDS: CEFTRIAXONE PMX 2GM/50ML 50 ML IV SCH (01:16)
[2018-04-07] MEDS: TEMAZEPAM 15 MG CAPSULE PO PRN (01:28)
[2018-04-07 05:25] LABS: ANION GAP 6 mmol/L (5-15); CALCIUM 8.6 mg/dL (8.5-10.1); CHLORIDE 103 mmol/L (98-107); CREATININE 2.74 mg/dL (0.7-1.3)
[2018-04-07 05:35] LABS: BASOPHILS # (AUTO) 0.03 x10^3/uL (0-0.1); BASOPHILS % (AUTO) 0 % (0-1); EOSINOPHILS % (AUTO) 0 % (1-7); LYMPHOCYTES # (AUTO) 1.21 x10^3/uL (1-3.4); LYMPHOCYTES % (AUTO) 17 % (22-44); MD NO; MEAN CORPUSCULAR HEMOGLOBIN 28.2 pg (27.5-34.5); MEAN CORPUSCULAR HGB CONC 32.8 g/dL (33.2-36.2); MEAN CORPUSCULAR VOLUME 85.9 fL (81-97); MEAN PLATELET VOLUME 9.9 fL (7.4-10.4); MONOCYTES # (AUTO) 0.16 x10^3/uL (0.2-0.8); MONOCYTES % (AUTO) 2 % (2-9); NEUTROPHILS # (AUTO) 5.61 x10^3/uL (1.8-6.8); NEUTROPHILS % (AUTO) 80 % (42-75); PLATELET COUNT 201 x10^3/uL (130-400); RED BLOOD COUNT 4.32 x10^6/uL (4.38-5.82); RED CELL DISTRIBUTION WIDTH 16.8 % (9.4-14.8)
[2018-04-07] MEDS: CARVEDILOL 12.5 MG TABLET PO SCH ×2 (05:37→17:16)
[2018-04-07] MEDS: ASPIRIN 81 MG TABLET EC PO SCH (05:37)
[2018-04-07] MEDS: GUAIFENESIN ER 600 MG TABLET PO SCH ×2 (08:09→21:28)
[2018-04-07] MEDS: BENZONATATE 100 MG CAPSULE PO SCH (08:09)
[2018-04-07] MEDS: VENLAFAXINE 25MG TABLET PO SCH ×2 (08:09→21:28)
[2018-04-07] MEDS: PANTOPROZOLE 40MG TABLET PO SCH (08:09)
[2018-04-07] MEDS: TAMSULOSIN 0.4 MG CAP.ER.24H PO SCH (08:09)
[2018-04-07] MEDS: CALCITRIOL 0.25 MCG CAPSULE PO SCH (08:09)
[2018-04-07] MEDS: FUROSEMIDE 20 MG TABLET PO SCH ×2 (08:10→16:30)
[2018-04-07] MEDS: AMLODIPINE 5 MG TABLET PO SCH ×2 (08:10→21:29)
[2018-04-07] MEDS: VALSARTAN 80 MG TABLET PO SCH ×2 (08:10→21:28)
[2018-04-07] MEDS ORDERED: MAGNESIUM SULFATE PMX 2GM/50ML 50 ML IV ONE (09:00)
[2018-04-07] MEDS ORDERED: BENZONATATE 100 MG CAPSULE PO PRN (11:30)
[2018-04-07] MEDS ORDERED: MELATONIN 5 MG TABLET PO PRN (11:30)
[2018-04-07] MEDS: AZITHROMYCIN 500 MG in SODIUM CHLORIDE 0.9% 250 ML IV SCH (21:29)
[2018-04-08 00:44] VITALS: BP 136/63
[2018-04-08] MEDS: HEPARIN 5,000 UNITS/ML, 1ML SQ SCH ×3 (01:15→16:47)
[2018-04-08] MEDS: CEFTRIAXONE PMX 2GM/50ML 50 ML IV SCH (01:15)
[2018-04-08] MEDS: TEMAZEPAM 15 MG CAPSULE PO PRN (02:10)
[2018-04-08] MEDS: NICOTINE 7 MG/24 HR PATCH.TD24 TD SCH (02:12)
[2018-04-08 06:02] LABS: ANION GAP 8 mmol/L (5-15); CALCIUM 9.4 mg/dL (8.5-10.1); CHLORIDE 103 mmol/L (98-107)
[2018-04-08 06:03] LABS: CREATININE 2.96 mg/dL (0.7-1.3)
[2018-04-08] MEDS: ASPIRIN 81 MG TABLET EC PO SCH (06:03)
[2018-04-08] MEDS: CARVEDILOL 12.5 MG TABLET PO SCH ×2 (06:03→17:36)
[2018-04-08 06:38] VITALS: BP 154/70
[2018-04-08] MEDS: VENLAFAXINE 25MG TABLET PO SCH ×2 (09:22→20:06)
[2018-04-08] MEDS: FUROSEMIDE 20 MG TABLET PO SCH ×2 (09:23→16:48)
[2018-04-08] MEDS: VALSARTAN 80 MG TABLET PO SCH ×2 (09:23→20:05)
[2018-04-08] MEDS: AMLODIPINE 5 MG TABLET PO SCH ×2 (09:23→20:05)
[2018-04-08] MEDS: GUAIFENESIN ER 600 MG TABLET PO SCH ×2 (09:23→20:05)
[2018-04-08] MEDS: PANTOPROZOLE 40MG TABLET PO SCH (09:23)
[2018-04-08] MEDS: CALCITRIOL 0.25 MCG CAPSULE PO SCH (09:23)
[2018-04-08] MEDS: TAMSULOSIN 0.4 MG CAP.ER.24H PO SCH (09:23)
[2018-04-08 12:42] VITALS: BP 145/63
[2018-04-08] MEDS: AZITHROMYCIN 500 MG TABLET PO SCH (12:42)
[2018-04-08 19:15] VITALS: BP 147/69
[2018-04-08 19:53] VITALS: BP 149/68
[2018-04-09 00:21] VITALS: BP 141/66
[2018-04-09 00:56] VITALS: BP 142/81
[2018-04-09] MEDS: NICOTINE 7 MG/24 HR PATCH.TD24 TD SCH (00:58)
[2018-04-09] MEDS: HEPARIN 5,000 UNITS/ML, 1ML SQ SCH ×2 (00:58→08:22)
[2018-04-09 05:45] VITALS: BP 144/78
[2018-04-09] MEDS: ASPIRIN 81 MG TABLET EC PO SCH (05:47)
[2018-04-09] MEDS: CARVEDILOL 12.5 MG TABLET PO SCH (05:48)
[2018-04-09 06:53] VITALS: BP 147/71
[2018-04-09] MEDS ORDERED: FURO40TA6 PO (07:27)
[2018-04-09] MEDS: PANTOPROZOLE 40MG TABLET PO SCH (08:22)
[2018-04-09] MEDS: TAMSULOSIN 0.4 MG CAP.ER.24H PO SCH (08:22)
[2018-04-09] MEDS: VENLAFAXINE 25MG TABLET PO SCH (08:22)
[2018-04-09] MEDS: VALSARTAN 80 MG TABLET PO SCH (08:23)
[2018-04-09] MEDS: GUAIFENESIN ER 600 MG TABLET PO SCH (08:23)
[2018-04-09] MEDS: AMLODIPINE 5 MG TABLET PO SCH (08:23)
[2018-04-09] MEDS: CALCITRIOL 0.25 MCG CAPSULE PO SCH (08:23)
[2018-04-09] MEDS: FUROSEMIDE 20 MG TABLET PO SCH (08:23)
[2018-04-09] MEDS: AZITHROMYCIN 500 MG TABLET PO SCH (08:23)
[2018-04-09] MEDS: DOCUSATE 100 MG CAPSULE PO PRN (11:31)
== END 2018-04-09 12:38 | disposition home or self-care (01) | DRG 291 ==
LOC: ED 21:45 → EDIP 22:48 → 4WST 04-03 00:11
PROVIDERS: ADMIT Internal Medicine; ATTEND Internal Medicine
DX: I13.0 Hypertensive heart and chronic kidney disease with heart failure and stage 1 through stage 4 chronic kidney disease, or unspecified chronic kidney disease (principal); I50.43 Acute on chronic combined systolic (congestive) and diastolic (congestive) heart failure; J15.9 Unspecified bacterial pneumonia; J96.01 Acute respiratory failure with hypoxia; E44.0 Moderate protein-calorie malnutrition; J44.0 Chronic obstructive pulmonary disease with (acute) lower respiratory infection; J44.1 Chronic obstructive pulmonary disease with (acute) exacerbation; Z68.25 Body mass index [BMI] 25.0-25.9, adult; D64.9 Anemia, unspecified; E78.5 Hyperlipidemia, unspecified; E83.42 Hypomagnesemia; F17.210 Nicotine dependence, cigarettes, uncomplicated; F32.9 Major depressive disorder, single episode, unspecified; F41.9 Anxiety disorder, unspecified; G47.33 Obstructive sleep apnea (adult) (pediatric); I08.0 Rheumatic disorders of both mitral and aortic valves; K21.9 Gastro-esophageal reflux disease without esophagitis; N18.3 Chronic kidney disease, stage 3 (moderate); Z59.0 Homelessness; Z86.79 Personal history of other diseases of the circulatory system; Z91.14 Patient's other noncompliance with medication regimen
CPT/HCPCS: 36415; 84145; 87400; 99285; J7613; 70450; 71045; 80048; 80053; 80061; 83036; 83605; 83735; 83880; 84439; 84443; 84484; 85025; 87040; 87070; 87205; 93005; 94640; 96365; G0378; J0456; J0696; J1644; J1940; J3475; J7050; J7512